=== PATIENT | female | born 1975 | race Hispanic/Latino ===

== ENCOUNTER 2024-06-02 15:39 | Emergency (ER) | payer OTHER ==
[~2024-06-02] VITALS: Ht 165.1 cm; Wt 86.2 kg
[2024-06-02] MEDS: DiphenhydrAMINE HCL 50 MG/ML VIAL IV ONE (15:51)
[2024-06-02] MEDS: FAMOTIDINE 20MG VIAL IV ONE (15:53)
[2024-06-02] MEDS: IPRATROPIUM/ALBUTEROL SULFATE 3 ML SOLUTION IH ONE (15:55)
[2024-06-02 16:15] VITALS: PULSE 72; RESP 20
[2024-06-02 18:43] LABS: BASOPHILS # (AUTO) 0.02 K/uL (0.00-0.20); BASOPHILS % (AUTO) 0.3 % (0.0-5.0); EOSINOPHILS # (AUTO) 0.09 K/uL (0.00-0.70); EOSINOPHILS % (AUTO) 1.3 % (0.0-8.0); HEMATOCRIT 41.3 % (36-48); IMMATURE GRANULOCYTE ABSOLUTE 0.01 K/uL (0-1); LYMPHOCYTES # (AUTO) 3.6 K/uL (1.0-4.8); LYMPHOCYTES % (AUTO) 51.1 % (21.0-51.0); MEAN CORPUSCULAR HEMOGLOBIN 29.4 pg (27.0-33.0); MEAN CORPUSCULAR HGB CONC 32.4 g/dL (32.0-36.0); MEAN CORPUSCULAR VOLUME 90.6 fL (79-99); MONOCYTES # (AUTO) 0.6 K/uL (0.1-1.0); MONOCYTES % (AUTO) 8.4 % (3.0-13.0); NEUTROPHILS # (AUTO) 2.7 K/uL (1.8-7.7); NEUTROPHILS % (AUTO) 38.8 % (40.0-77.0); PLATELET COUNT (AUTO) 269 K/uL (130-400); RED BLOOD CELL COUNT(AUTO) 4.56 MIL/uL (4.00-5.50)
[2024-06-02] MEDS: 0.9%NACL 1000ML 1,000 ML IV ONE (18:53)
[2024-06-02 19:03] LABS: CREATININE 1.1 mg/dL (0.5-1.0); POTASSIUM 3.5 mmol/L (3.5-5.1)
[2024-06-02 19:15] LABS: SARS-CoV-2, RNA, NAAT POSITIVE SARS CoV-2 (NEGATIVE)
[2024-06-02 19:20] LABS: INFLUENZA TYPE A Negative For Type A (NEGATIVE); INFLUENZA TYPE B Negative For Type B (NEGATIVE)
[2024-06-02 19:33] VITALS: BP 116/68; PULSE 69; RESP 16; O2SAT 97
[2024-06-02] MEDS ORDERED: AZIT250T9 PO (19:39)
[2024-06-02] MEDS ORDERED: FAMO-136 PO (19:39)
== END 2024-06-02 20:00 | disposition home or self-care (01) ==
LOC: EDH 15:39
DX: U07.1 COVID-19 (principal); T36.0X5A Adverse effect of penicillins, initial encounter; E86.0 Dehydration; B34.9 Viral infection, unspecified; Z88.8 Allergy status to other drugs, medicaments and biological substances; Y92.89 Other specified places as the place of occurrence of the external cause
CPT/HCPCS: 99285; 96374; 71045; 87635; 96361; 96375; 84484; 80048; 85025; 87804 ×2; 83605; 36415; 93005; 36600; 94640; J1200; J3490